=== PATIENT | female | born 1950 | race Caucasian/White ===

== ENCOUNTER 2016-03-27 10:34 | Emergency (ER) | payer OTHER ==
[2016-03-27 10:44] VITALS: BP 126/82
--- NOTE | 2016-03-27 11:10 | UC ---
Abdominal Pain Female HPI - HPI Summary HPI Summary: 3 DAYS OF LLQ PAIN AND WATERY DIARRHEA. NO BLOOD PER RECTUM. HAS A H/O DIVERTICULITIS AND THIS FEELS THE SAME. NO FEVER, N/V. - History of Current Complaint Chief Complaint: UCGI Stated Complaint: STOMACH COMPLAINT Time Seen by Provider: 03/27/16 10:58 Hx Obtained From: Patient Onset/Duration: Sudden Onset, Lasting Days, Still Present Timing: Constant Severity Initially: Moderate Severity Currently: Moderate Pain Intensity: 3 Pain Scale Used: 0-10 Numeric Location: Discrete At: LLQ Radiates: No Character: Cramping, Sharp Aggravating Factor(s): Movement Alleviating Factor(s): Nothing Associated Signs and Symptoms: Positive: Diarrhea. Negative: Fever Allergies/Adverse Reactions: Allergies Allergy/AdvReac Type Severity Reaction Status Date / Time Oxycodone [From Percocet] Allergy Mild Constipatio Verified 03/28/13 10:41 n Home Medications: Home Medications [place]-3 Fatty Acids [Fish Oil] 1,000 mg PO 03/27/16 [History] SUMAtriptan SQ* [Imitrex SQ*] 6 mg SUBCUT SEE INSTRUCTIONS 03/27/16 [History Confirmed 03/27/16] PMH/Surg Hx/FS Hx/Imm Hx Endocrine History Of: Denies: Diabetes Cardiovascular History Of: Denies: Hypertension, Congestive Heart Failure GI/ History Of: Denies: Renal Disease Neurological History Of: Reports: Migraine Cancer History Of: Denies: Breast Cancer - Surgical History Surgical History: Yes Surgery Procedure, Year, and Place: SHOULDER LEFT SURGERY, polyp removal during colonoscopy in the past - Family History Known Family History: Positive: Hypertension, Other - CVA - Social History Alcohol Use: Daily Substance Use Type: None Smoking Status (MU): Never Smoked Tobacco Review of Systems Constitutional: Negative Respiratory: Negative Cardiovascular: Negative Gastrointestinal: Abdominal Pain, Diarrhea All Other Systems Reviewed And Are Negative: Yes Physical Exam Triage Information Reviewed: Yes Appearance: Well-Appearing, Well-Nourished, Pain Distress - MODERATE Vital Signs: Initial Vital Signs Temp 96.5 F 03/27/16 10:39 Pulse 96 03/27/16 10:39 Resp 18 03/27/16 10:39 BP 126/82 03/27/16 10:39 Pulse Ox 98 03/27/16 10:39 Vital Signs Reviewed: Yes Eyes: Positive: Conjunctiva Clear ENT: Positive: Hearing grossly normal Neck: Positive: Supple Respiratory Exam: Normal Cardiovascular: Positive: Tachycardia Abdomen Description: Positive: Soft, Other: - TTP LLQ. NO REBOUND OR RIGIDITY. Negative: Distended, Guarding Bowel Sounds: Positive: Present Musculoskeletal: Positive: No Edema Neurological: Positive: Alert Psychological: Positive: Age Appropriate Behavior Skin: Negative: rashes Abd Pain Female Course/Dx - Differential Dx/Diagnosis Provider Diagnoses: DIVERTICULITIS Discharge - Discharge Plan Condition: Stable Disposition: HOME Prescriptions: Ciprofloxacin TAB* [Cipro Tab*] 500 mg PO BID #20 tab Metronidazole [Flagyl 500 MG TAB] 500 mg PO TID #30 tab Patient Education Materials: Diverticulitis (ED) Referrals: Oneal Reid MD [Primary Care Provider] - If Needed Additional Instructions: GO TO THE ER WITHOUT FAIL IF YOUR SYMPTOMS WORSEN OR DO NOT IMPROVE.
== END 2016-03-27 11:26 | disposition home or self-care (01) ==
LOC: UCEAST 10:34
DX: K57.92 Diverticulitis of intestine, part unspecified, without perforation or abscess without bleeding (principal); Z87.19 Personal history of other diseases of the digestive system; Z86.010 Personal history of colon polyps
CPT/HCPCS: 99212; G0463

== ENCOUNTER 2016-10-25 07:13 | Emergency (ER) | payer OTHER ==
[2016-10-25] MEDS ORDERED: Ondansetron INJ* 2 MG/ML VIAL IV ONE (07:36)
[2016-10-25] MEDS ORDERED: HYDROmorphone* 1 MG/ML 1 ML SYR IV ONE (07:36)
[2016-10-25] MEDS ORDERED: NS 0.9% 1000 ML* 1,000 ML IV ONE (07:36)
[2016-10-25 07:45] LABS: Hematocrit 40 % (35-47); Hemoglobin 13.5 g/dl (12.0-16.0); Mean Corpuscular HGB Conc 34 g/dl (31-36); Mean Corpuscular Hemoglobin 31 pg (27-31); Mean Corpuscular Volume 91 fL (80-97); Mean Platelet Volume 8 um3 (7.4-10.4); Red Blood Count 4.36 10^6/ul (4.0-5.4); Red Cell Distribution Width 13 % (10.5-15); White Blood Count 13.5 10^3/ul (3.5-10.8)
[2016-10-25 08:00] LABS: Albumin 4.6 g/dL (3.2-5.2); BUN/Creatinine Ratio 15.3 (8-20); C Reactive Protein 15.01 mg/L (< 5.00); Calcium 9.2 mg/dL (8.6-10.3); EGFR African American 104.9 (>60); EGFR Non-African American 81.6 (>60); Globulin 2.7 g/dL (2-4); Potassium 3.9 mmol/L (3.5-5.0); Total Bilirubin 0.8 mg/dL (0.2-1.0); Total Protein 7.3 g/dL (6.4-8.9)
--- NOTE | 2016-10-25 08:31 | RAD ---
CLINICAL HISTORY: Diarrhea and low abdominal pain COMPARISON: Most recent comparison CT is dated February 06, 2012 TECHNIQUE: Noncontrast CT examination of the abdomen and pelvis from the lung bases through the initial tuberosities. FINDINGS: VISUALIZED LUNG BASES: The visualized lung bases are grossly clear. There is no pleural effusion. ABDOMEN AND PELVIS: Evaluation of the solid organs and vasculature is limited without intravenous contrast. The liver, spleen, pancreas and adrenal glands are grossly normal in appearance. The gallbladder is normal. The kidneys are normal in appearance without focal mass, calcification or signs of hydronephrosis. Evaluation of the small and large bowel is limited in the absence of oral contrast. The small and large bowel are not distended.The patient's normal appendix is identified in the right lower quadrant measuring up to 5 mm in diameter with gas in the lumen (image 100). There are colonic diverticula that become more concentrated in the distal and rectosigmoid colon. The sigmoid colon exhibits wall thickening and moderate pericolonic infiltration of the mesenteric fat. There is no drainable fluid collection or abscess. There is no gross free air to indicate macro perforation. There is no gross retroperitoneal or mesenteric lymphadenopathy. The pelvic viscera is normal in appearance. The abdominal aorta and iliac arteries are normal in course and diameter. Degenerative changes include multilevel loss of intervertebral disc height involving the lower thoracic and lumbar spine.There are no sinister bone lesions. IMPRESSION: CT findings are most consistent with sigmoid colon diverticulitis.
[2016-10-25 09:08] LABS: Urine Bacteria Absent (Absent); Urine Bilirubin Negative (Negative); Urine Glucose Negative (Negative); Urine Nitrite Negative (Negative)
[2016-10-25 09:09] VITALS: BP 126/62
--- NOTE | 2016-10-25 09:23 | ED ---
Con Cummings Angela, scribed for Andrés Duckworth MD on 10/25/16 at 0736 . Abdominal Pain/Female - HPI Summary HPI Summary: This pt is a 65 y/o female presenting to [facility] c/o severe abdominal pain since last night at 20:30. Pt reports that she had 1 episode of diarrhea that is described as "massive" and "wore her out." She notes her pain is like waves of severe pain and described as "almost giving ." Pt states that she drank 3 glasses of warm water to alleviate her pain but urinating aggravated her abd pain. Pt denies nausea, vomiting, dysuria, hematuria, bloody stools, fever. PMHx : diverticulitis. - History of Current Complaint Chief Complaint: EDAbdPain Stated Complaint: ABD PAIN Hx Obtained From: Patient Onset/Duration: Sudden Onset - since last night, Still Present Pain Intensity: 10 Location: Diffuse Radiates: No Aggravating Factor(s): Movement, Other: - urinating Alleviating Factor(s): Nothing Associated Signs and Symptoms: Positive: Diarrhea. Negative: Fever, Blood in Stool, Urinary Symptoms, Vaginal Bleeding, Nausea, Vomiting Allergies/Adverse Reactions: Allergies Allergy/AdvReac Type Severity Reaction Status Date / Time Oxycodone [From Percocet] Allergy Mild Constipatio Verified 03/28/13 10:41 n PMH/Surg Hx/FS Hx/Imm Hx Endocrine/Hematology History: Denies: Hx Diabetes Cardiovascular History: Denies: Hx Congestive Heart Failure, Hx Hypertension GI History: Reports: Other GI Disorders - present fever and llq pain colonoscopy in dec 1011 History: Denies: Hx Renal Disease Neurological History: Reports: Hx Migraine - Cancer History Cancer Type, Location and Year: skin cancer to l cheek Hx Chemotherapy: No Hx Radiation Therapy: No - Surgical History Surgery Procedure, Year, and Place: SHOULDER LEFT SURGERY, polyp removal during colonoscopy in the past - Immunization History Date of Tetanus Vaccine: Unknown Date of Influenza Vaccine: None Infectious Disease History: Denies: Traveled Outside the [place] in Last 30 Days - Family History Known Family History: Positive: Hypertension, Other - CVA - Social History Alcohol Use: Daily Substance Use Type: Reports: None Smoking Status (MU): Never Smoked Tobacco Review of Systems Negative: Fever, Chills Positive: Abdominal Pain, Diarrhea. Negative: Vomiting, Nausea Negative: dysuria, hematuria All Other Systems Reviewed And Are Negative: Yes Physical Exam Triage Information Reviewed: Yes Vital Signs On Initial Exam: Initial Vitals Temp Pulse Resp BP Pulse Ox 100 F 103 24 144/60 98 10/25/16 07:15 10/25/16 07:15 10/25/16 07:15 10/25/16 07:15 10/25/16 07:15 Vital Signs Reviewed: Yes Appearance: Positive: Well-Appearing, Pain Distress Skin: Positive: Warm, Skin Color Reflects Adequate Perfusion, Dry Head/Face: Positive: Normal Head/Face Inspection Eyes: Positive: Normal ENT: Positive: Normal ENT inspection Neck: Positive: Supple, Nontender Respiratory/Lung Sounds: Positive: Clear to Auscultation, Breath Sounds Present Cardiovascular: Positive: RRR Abdomen Description: Positive: Soft, Other: - Mildly tender around periumbilical area Bowel Sounds: Positive: Present Musculoskeletal: Positive: Normal Neurological: Positive: Normal Psychiatric: Positive: Normal, Affect/Mood Appropriate Diagnostics - Vital Signs Vital Signs Temp Pulse Resp BP Pulse Ox 10/25/16 07:15 100 F 103 24 144/60 98 - Laboratory Lab Results: Lab Results 10/25/16 10/25/16 10/25/16 Range/Units 07:30 07:30 07:30 WBC 13.5 H (3.5-10.8) 10^3/ul RBC 4.36 (4.0-5.4) 10^6/ul Hgb 13.5 (12.0-16.0) g/dl Hct 40 (35-47) % MCV 91 (80-97) fL MCH 31 (27-31) pg MCHC 34 (31-36) g/dl RDW 13 (10.5-15) % Plt Count 200 (150-450) 10^3/ul MPV 8 (7.4-10.4) um3 Neut % (Auto) 88.4 H (38-83) % Lymph % (Auto) 6.2 L (25-47) % Johnson % (Auto) 5.2 (1-9) % Eos % (Auto) 0 (0-6) % Baso % (Auto) 0.2 (0-2) % Absolute Neuts (auto) 12.0 H (1.5-7.7) 10^3/ul Absolute Lymphs (auto) 0.8 L (1.0-4.8) 10^3/ul Absolute Monos (auto) 0.7 (0-0.8) 10^3/ul Absolute Eos (auto) 0 (0-0.6) 10^3/ul Absolute Basos (auto) 0 (0-0.2) 10^3/ul Absolute Nucleated RBC 0 10^3/ul Nucleated RBC % 0 Sodium 134 (133-145) mmol/L Potassium 3.9 (3.5-5.0) mmol/L Chloride 101 (101-111) mmol/L Carbon Dioxide 22 (22-32) mmol/L Anion Gap 11 (2-11) mmol/L BUN 11 (6-24) mg/dL Creatinine 0.72 (0.51-0.95) mg/dL Est GFR ( Amer) 104.9 (>60) Est GFR (Non-Af Amer) 81.6 (>60) BUN/Creatinine Ratio 15.3 (8-20) Glucose 124 H (70-100) mg/dL Lactic Acid 2.9 H* (0.5-2.0) mmol/L Calcium 9.2 (8.6-10.3) mg/dL Total Bilirubin 0.80 (0.2-1.0) mg/dL AST 22 (13-39) U/L ALT 17 (7-52) U/L Alkaline Phosphatase 69 (34-104) U/L C-Reactive Protein 15.01 H (< 5.00) mg/L Total Protein 7.3 (6.4-8.9) g/dL Albumin 4.6 (3.2-5.2) g/dL Globulin 2.7 (2-4) g/dL Albumin/Globulin Ratio 1.7 (1-3) Lipase 17 (11.0-82.0) U/L Urine Color Urine Appearance Urine pH (5-9) Ur Specific Colton (1.010-1.030) Urine Protein (Negative) Urine Ketones (Negative) Urine Blood (Negative) Urine Nitrate (Negative) Urine Bilirubin (Negative) Urine Urobilinogen (Negative) Ur Leukocyte Esterase (Negative) Urine WBC (Auto) (Absent) Urine RBC (Auto) (Absent) Urine Bacteria (Absent) Urine Glucose (Negative) 10/25/16 Range/Units 08:45 WBC (3.5-10.8) 10^3/ul RBC (4.0-5.4) 10^6/ul Hgb (12.0-16.0) g/dl Hct (35-47) % MCV (80-97) fL MCH (27-31) pg MCHC (31-36) g/dl RDW (10.5-15) % Plt Count (150-450) 10^3/ul MPV (7.4-10.4) um3 Neut % (Auto) (38-83) % Lymph % (Auto) (25-47) % Johnson % (Auto) (1-9) % Eos % (Auto) (0-6) % Baso % (Auto) (0-2) % Absolute Neuts (auto) (1.5-7.7) 10^3/ul Absolute Lymphs (auto) (1.0-4.8) 10^3/ul Absolute Monos (auto) (0-0.8) 10^3/ul Absolute Eos (auto) (0-0.6) 10^3/ul Absolute Basos (auto) (0-0.2) 10^3/ul Absolute Nucleated RBC 10^3/ul Nucleated RBC % Sodium (133-145) mmol/L Potassium (3.5-5.0) mmol/L Chloride (101-111) mmol/L Carbon Dioxide (22-32) mmol/L Anion Gap (2-11) mmol/L BUN (6-24) mg/dL Creatinine (0.51-0.95) mg/dL Est GFR ( Amer) (>60) Est GFR (Non-Af Amer) (>60) BUN/Creatinine Ratio (8-20) Glucose (70-100) mg/dL Lactic Acid (0.5-2.0) mmol/L Calcium (8.6-10.3) mg/dL Total Bilirubin (0.2-1.0) mg/dL AST (13-39) U/L ALT (7-52) U/L Alkaline Phosphatase (34-104) U/L C-Reactive Protein (< 5.00) mg/L Total Protein (6.4-8.9) g/dL Albumin (3.2-5.2) g/dL Globulin (2-4) g/dL Albumin/Globulin Ratio (1-3) Lipase (11.0-82.0) U/L Urine Color Straw Urine Appearance Clear Urine pH 8.0 (5-9) Ur Specific Colton 1.005 L (1.010-1.030) Urine Protein Negative (Negative) Urine Ketones Negative (Negative) Urine Blood 1+ H (Negative) Urine Nitrate Negative (Negative) Urine Bilirubin Negative (Negative) Urine Urobilinogen Negative (Negative) Ur Leukocyte Esterase Trace H (Negative) Urine WBC (Auto) Trace(0-5/hpf) (Absent) Urine RBC (Auto) 1+(3-5/hpf) H (Absent) Urine Bacteria Absent (Absent) Urine Glucose Negative (Negative) Result Diagrams: 10/25/16 07:30 10/25/16 07:30 Lab Statement: Any lab studies that have been ordered have been reviewed, and results considered in the medical decision making process. - CT Abdomen/Pelvis CT CT Interpretation: Positive (See Comments) - IMPRESSION: CT findings are most consistent with sigmoid colon diverticulitis. ED physician has reviewed this radiology report and agrees. CT Interpretation Completed By: Radiologist Abdominal Pain Fem Course/Dx - Course Course Of Treatment: Ms. Morales presented in quite a bit of pain. It was low midline abdominal pain that seemed peristaltic. CT revealed sigmoid diverticulitis and she will be treated with antibiotics. She refused opiate pain meds. - Diagnoses Provider Diagnoses: Diverticulitis Discharge - Discharge Plan Condition: Stable Disposition: HOME Prescriptions: Ciprofloxacin TAB* [Cipro Tab*] 500 mg PO BID #20 tab Metronidazole [Flagyl 500 MG TAB] 500 mg PO TID #30 tab Naproxen TAB* [Naprosyn 375 mg TAB*] 375 mg PO Q8H #30 tab Patient Education Materials: Diverticulitis (ED) Referrals: Oneal Reid MD [Primary Care Provider] - Additional Instructions: Your blood pressure was elevated during today's visit. Please follow up with your primary care physician. The documentation as recorded by the Con matta Angela accurately reflects the service I personally performed and the decisions made by me, Andrés Duckworth MD.
== END 2016-10-25 09:21 | disposition home or self-care (01) ==
LOC: ED 07:13
DX: K57.92 Diverticulitis of intestine, part unspecified, without perforation or abscess without bleeding (principal); R19.7 Diarrhea, unspecified; R10.9 Unspecified abdominal pain
CPT/HCPCS: 36415; 74176; 80053; 81003; 81015; 83605; 83690; 85025; 86140; 87086; 96374; 96375; 99282; J1170; J2405

== ENCOUNTER 2017-02-19 07:45 | Inpatient (IN) | payer OTHER ==
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
[~2017-02-19 07:45] MED LIST: Buffered Lidocaine 0.9% SYRIN* 5 ML/SYR SYRINGE INTRADERM ONE; Dexamethasone IV* 4 MG/ML 1 ML (4 MG) IV SLOW PU ONE; Famotidine IV* 10 MG/ML 2 ML (20 mg) IV ONE; Scopolamine 1.5 mg* PATCH TRANSDERM ONE
[2017-02-19] MEDS ORDERED: Scopolamine 1.5 mg* PATCH ONE (14:13)
[2017-02-19] MEDS ORDERED: Dexamethasone IV* 4 MG/ML 1 ML (4 MG) ONE (14:13)
[2017-02-19] MEDS ORDERED: Famotidine IV* 10 MG/ML 2 ML (20 mg) ONE ×2 (14:13→22:11)
[2017-02-19] MEDS ORDERED: Buffered Lidocaine 0.9% SYRIN* 5 ML/SYR SYRINGE ONE (14:14)
[2017-02-19] MEDS ORDERED: Ertapenem* 1 GM in NS 0.9% 50 ML* 50 ML IVPB ONE (14:30)
[2017-02-19] MEDS ORDERED: Bupivacaine 0.25% SDV* 30 ML ONE (16:41)
[2017-02-19] MEDS ORDERED: Propofol* 10 MG/ML 20 ML BTL IV PUSH ONE (17:00)
[2017-02-19] MEDS ORDERED: Lidocaine 2% PF * 5 ML VIAL ONE (17:00)
[2017-02-19] MEDS ORDERED: fentaNYL* 50 MCG/ML 5 ML VIAL (250 MCG VIAL) ONE (17:01)
[2017-02-19] MEDS ORDERED: Rocuronium* 10 MG/ML VIAL ONE (17:02)
[2017-02-19] MEDS ORDERED: Ketorolac INJ* 30 MG/ML 1 ML VIAL ONE (17:52)
[2017-02-19] MEDS ORDERED: PROCHLORPERAZINE INJ 5 MG/ML 2 ML VIAL IV PRN (18:05)
[2017-02-19] MEDS ORDERED: Acetaminophen IV 1GM/100ML * 1,000 MG/100 ML VIAL IVPB ONE (18:05)
[2017-02-19] MEDS ORDERED: fentaNYL* 50 MCG/ML 2 ML VIAL (100 MCG VIAL) ONE ×4 (18:39→21:25)
[2017-02-19] MEDS ORDERED: Ondansetron INJ* 2 MG/ML VIAL ONE (19:25)
[2017-02-19] MEDS ORDERED: Phenylephrine IV* 40 MCG/ML 10 ML SYRINGE ONE (19:47)
[2017-02-19] MEDS ORDERED: EPHEDrine (Pressors)* 50 MG/ML VIAL ONE (19:52)
[2017-02-19] MEDS ORDERED: Ondansetron INJ* 2 MG/ML VIAL IV PRN (20:48)
[2017-02-19] MEDS ORDERED: Acetaminophen IV 1GM/100ML * 100 ML ONE (21:06)
[2017-02-19] MEDS ORDERED: Morphine INJ* 10 MG/ML 1 ML CARPUJECT ONE (21:10)
[2017-02-19] MEDS: Morphine INJ* 2 MG/ML 1 ML CARPUJECT IV PRN ×2 (21:11→21:52)
[2017-02-19] MEDS: fentaNYL* 50 MCG/ML 2 ML VIAL (100 MCG VIAL) IV PRN ×2 (21:27→21:35)
[2017-02-19] MEDS: Famotidine IV* 10 MG/ML 2 ML (20 mg) IV SLOW PU SCH (22:14)
[2017-02-20 05:27] LABS: Hematocrit 36 % (35-47); Hemoglobin 12.1 g/dl (12.0-16.0); Mean Corpuscular HGB Conc 34 g/dl (31-36); Mean Corpuscular Hemoglobin 32 pg (27-31); Mean Corpuscular Volume 93 fL (80-97); Mean Platelet Volume 7 um3 (7.4-10.4); Red Blood Count 3.83 10^6/ul (4.0-5.4); Red Cell Distribution Width 13 % (10.5-15); White Blood Count 10.2 10^3/ul (3.5-10.8)
[2017-02-20 05:41] LABS: BUN/Creatinine Ratio 13.4 (8-20); Calcium 8.4 mg/dL (8.6-10.3); EGFR African American 113.6 (>60); EGFR Non-African American 88.3 (>60); Potassium 3.9 mmol/L (3.5-5.0)
[2017-02-20] MEDS: Heparin VIAL(*) 5000 UNITS/ML VIAL (FIVE THOUSAND) SUBCUT SCH ×2 (06:03→15:14)
--- NOTE | 2017-02-20 07:38 | OP ---
CC: Oneal Reid MD; [facility] DATE OF OPERATION: 02/19/17 - ROOM #333 DATE OF : 52 SURGEON: Gallo Walls MD. BINDERY LEADPERSON: Dr. Rutherford and EDI Arreguin. ANESTHESIOLOGIST: Delores Green MD. ANESTHESIA: General endotracheal. PRE-OP DIAGNOSIS: Recurrent sigmoid diverticulitis. POST-OP DIAGNOSIS: Recurrent sigmoid diverticulitis. OPERATIVE PROCEDURE: Laparoscopic sigmoid colectomy. ESTIMATED BLOOD LOSS: 50 mL. IV FLUIDS: 2.3 L crystalloids. SPECIMENS: Sigmoid colon. DRAINS: None. COMPLICATIONS: None. COUNTS: Instrument, needle, and sponge counts were correct. DESCRIPTION OF PROCEDURE: The patient was brought to the operating room and placed on the table supine. Sequential compression devices were placed in both lower extremities. General anesthesia was administered. Yusuf catheter was placed. She was positioned split leg on the table and secured and padded appropriately. She had rectal irrigation performed until clear with Betadine solution. She received intravenous antibiotics and she was prepped and draped in the usual sterile fashion and a time-out was performed. Local anesthetic was infiltrated prelimbically and an infraumbilical vertical incision was created and using an open technique the perineal cavity was accessed and the 5 mm trocar was placed and carbon dioxide was insufflated to a pressure of 15 mmHg. Under direct visualization additional 5 mm trocars were placed in the left lower quadrant, right lower quadrant, and suprapubic midline. The patient's abdominal cavity was notable for no evidence of adhesions to the anterior abdominal wall. There was chronic-appearing diverticular disease of the sigmoid colon with adhesions to the left adnexa and around the pelvis. To elevate the uterus out of the way a 3-0 Monocryl suture on a Torito needle was passed transabdominally in the suprapubic region and looped through the broad ligament on either side and then drawn back to the abdominal wall to elevate the uterus off of the rectum. The dissection was performed using combination of LigaSure with monopolar cautery and blunt dissection to mobilize the descending colon along the white line of Toldt and this was taken up to but not including the splenic flexure and then down to the sigmoid colon where there were some dense adhesion along the pelvic brim on the left side. The mobilization of the descending colon enabled visualization of the ureter on the left side which was positively identified and maintained out of the planes of dissection. The dissection proceeded distally, bluntly the sigmoid colon to the midline and then on the right side of the rectosigmoid junction the peritoneum was scored on the mesentery and then a blunt dissection was performed behind the top of the rectum creating a window in the mesentery. This was enlarged using LigaSure staying close to the wall. Then a 12-mm trocar was used to replace the 5 mm initial trocar at the umbilical site and a EndoGIA stapler with a purple 60 mm cartridge was used to divide the top of the rectum in a posterior anterior direction and after completing the division of the bowel, the bowel was elevated and a window created in the distal descending colon proximally and the mesentery was divided close to the bowel with a LigaSure extending from the distal margin resection proximally as well as from the proximal window down until the mesentery was completely divided. Hemostasis was assured. Then the umbilical wound was enlarged and a small size Billy retractor was placed in the site and the sigmoid colon drawn through this. There were noted to be numerous diverticula. Outside of the sigmoid colon and descending colon a soft normal-appearing portion of bowel was isolated as the proximal margin and then this was divided and the remaining mesentery was divided with LigaSure and the specimen was handed off. The bowel was sized proximally for a 28 mm EEA stapler and a small additional portion of proximal colon was resected in order to eliminate in the area of dense diverticular disease and then a 28 mm anvil was placed into the bowel lumen and the pursestring suture with a 2-0 Prolene was used in a whipstitch fashion to secure the anvil. There were two small tics that were separately drawn into the anvil with 3-0 silk, and inspection revealed that there were no tics within the area of the staple line. The bowel was then returned to the peritoneal cavity and instrument and glove change was performed and the Billy retractor was removed and the midline wound was closed with interrupted [id number] 0 Vicryl and #1 Vicryl sutures and a 5-mm trocar was placed through this wound and the peritoneal cavity was re-insufflated. The continuity of the bowel was restored by an end-to-end colorectal anastomosis with a 28-mm EEA stapler using a double staple technique. The anastomosis was then tested with bubble leak test with proximal occlusion on the colon. There was no evidence of leak. The air was evacuated from the rectum and hemostasis was assured. The ports were removed under direct visualization and carbon-dioxide was released. Incisions were irrigated and closed with aris. The wounds were dressed. The patient was extubated uneventfully and transferred to the recovery room in a stable condition. [id number]/[facility] #: [id number] BLU
[2017-02-20] MEDS: Ketorolac INJ* 30 MG/ML 1 ML VIAL IV PRN (08:06)
[2017-02-20] MEDS ORDERED: Influenza VAC *QUAD* 2017-18* 0.5 ML SYRINGE IM ONE (09:00)
[2017-02-20] MEDS: Famotidine IV* 10 MG/ML 2 ML (20 mg) IV SLOW PU SCH ×2 (10:24→21:05)
--- NOTE | 2017-02-20 14:42 | PN ---
Progress Note - Progress Note Date of Service: 02/20/17 SOAP: Subjective: She has had a couple of episodes of BRBRP with clots, but that seems to have stopped and she has passed some flatus. Pain is controlled without narcotics. No N/V. Objective: Vital Signs Temp 97.8 F 02/20/17 11:47 Pulse 73 02/20/17 11:47 Resp 16 02/20/17 11:47 BP 111/47 02/20/17 11:47 Pulse Ox 100 02/20/17 11:47 Gen: Well appearing; sitting up in be reading; NAD. Abd: dressings c/d/i; surrounding ecchymosis; soft; ND; min tender Intake & Output 02/19/17 02/20/17 02/20/17 18:59 06:59 18:59 Intake Total 50 985 0 Output Total 400 60 Balance 50 585 -60 Weight 137 lb Intake: IV Fluids 50 985 ERTAPENEM 1GM 50 LR 985 Oral 0 0 Output: Urine 0 Yusuf 400 60 Other: Estimated Void Small # Voids 1 Laboratory Results - last 24 hr 02/20/17 02/20/17 04:58 04:58 WBC 10.2 RBC 3.83 L Hgb 12.1 Hct 36 MCV 93 MCH 32 H MCHC 34 RDW 13 Plt Count 204 MPV 7 L Neut % (Auto) 82.7 Lymph % (Auto) 9.4 L Nicholas % (Auto) 7.7 Eos % (Auto) 0 Baso % (Auto) 0.2 Absolute Neuts (auto) 8.4 H Absolute Lymphs (auto) 1.0 Absolute Monos (auto) 0.8 Absolute Eos (auto) 0 Absolute Basos (auto) 0 Absolute Nucleated RBC 0 Nucleated RBC % 0 Sodium 140 Potassium 3.9 Chloride 110 Carbon Dioxide 25 Anion Gap 5 BUN 9 Creatinine 0.67 Est GFR ( Amer) 113.6 Est GFR (Non-Af Amer) 88.3 BUN/Creatinine Ratio 13.4 Glucose 105 H Calcium 8.4 L Assessment: POD#1 s/p LAP SIGMOID Doing well but possible LGIB vs. passing retained blood from surgery. Plan: Will advance diet. Follow up labs tomorrow, sooner prn. PO meds. Possible d/ c late tomorrow or Saturday.
[2017-02-20] MEDS ORDERED: SUMAtriptan SQ* 6 MG/0.5 ML VIAL SUBCUT PRN (14:44)
[2017-02-20] MEDS ORDERED: oxyCODONE TAB* 5 MG TAB PO PRN (14:45)
[2017-02-20] MEDS ORDERED: NS 0.9% 500 ML* 500 ML IV ONE (16:20)
[2017-02-20] MEDS: HYDROmorphone INJ* 2 MG/ML CARPUJECT SYRINGE IV PRN ×2 (21:05→23:39)
[2017-02-21] MEDS: HYDROmorphone INJ* 2 MG/ML CARPUJECT SYRINGE IV PRN (02:34)
[2017-02-21 05:42] LABS: Hematocrit 30 % (35-47); Hemoglobin 10.5 g/dl (12.0-16.0)
[2017-02-21] MEDS: Ketorolac INJ* 30 MG/ML 1 ML VIAL IV PRN (07:26)
[2017-02-21] MEDS ORDERED: Lactobacillus Acidophilu (GG)* 1 CAP CAP PO SCH (09:00)
[2017-02-21] MEDS: Famotidine IV* 10 MG/ML 2 ML (20 mg) IV SLOW PU SCH (09:18)
[2017-02-21] MEDS ORDERED: Acetaminophen TAB* 325 MG PO PRN (10:44)
--- NOTE | 2017-02-21 10:52 | PN ---
Progress Note - Progress Note Date of Service: 02/21/17 Note: Surgery Progress: S: POD #2. No c/o. Nic clears; would like to advance. Passing flatus. Has still passed a few clots pr, but less than previous. Ambulating and voiding well. Responded to fluid bolus yesterday. O: tmax 101 yesterday pm Vital Signs - 8 hr 02/21/17 02/21/17 02/21/17 03:27 05:25 05:26 Temperature 98.6 F Pulse Rate 81 Respiratory 16 17 17 Rate Blood Pressure 148/69 (mmHg) O2 Sat by Pulse 94 Oximetry 02/21/17 02/21/17 08:00 08:13 Temperature 97.9 F Pulse Rate 80 Respiratory 16 16 Rate Blood Pressure 134/70 (mmHg) O2 Sat by Pulse 96 Oximetry Intake and Output Last 24 Hours 02/19/17 02/20/17 02/21/17 02/22/17 06:59 06:59 06:59 06:59 Intake Total 1035 3022 1498 Output Total 400 2415 900 Balance 635 607 598 Weight 137 lb Intake: IV Fluids 1035 1817 1148 ERTAPENEM 1GM 50 LR 985 1817 1148 Oral 0 1205 350 Output: Urine 2300 900 Yusuf 400 60 Estimated Blood Loss 55 Other: Estimated Void Small # Bowel Movements 1 Estimated Stool Amount Small # Voids 1 Gen: NAD Heart: reg Lungs; clear Abd: +BS; evolving ecchymosis around incisions, nahum midline, where there is a small amt of sang drainage. Incisional tenderness as expected. No definite hematoma at midline incision. Laboratory Results - last 24 hr 02/21/17 05:15 Hgb 10.5 L Hct 30 L A: s/p lap sigmoid colectomy, doing well overall P: will adv diet; decrease IVF; Dr. Walls to see later, check wound; prob d/c home 02/22?
[2017-02-21 12:12] VITALS: BP 137/74
[2017-02-21] MEDS ORDERED: Ibuprofen TAB* 400 MG PO PRN (20:51)
--- NOTE | 2017-02-22 04:06 | DS ---
CC: Oneal Reid MD* DISCHARGE SUMMARY: DATE OF ADMISSION: 02/19/17 DATE OF DISCHARGE: 02/21/17 ATTENDING SURGEON: Dr. Gallo Walls* (dictated by EDI Carrasquillo). HOSPITAL COURSE: Please refer to admission history and physical for admission details and also separate operative note. The patient was taken to the operating room on 02/19/17 and underwent laparoscopic-assisted sigmoid colectomy with Dr. Walls. Pathology at this time is still pending. Surgery was otherwise uneventful. Yusuf catheter was removed on postop day #1 and the patient has been gradually able to progress in diet to currently tolerating full liquid diet. She did have some passage of clot in the first 24 hours postoperatively and therefore heparin was held. A repeat of her H and H today was 10.5 and 30 down from 12.1 and 36. PHYSICAL EXAMINATION: Vital Signs: T-max in the last 24 hours 101 last evening. She is afebrile at 97.6 this morning, blood pressure 137/74, pulse 76, respirations 18, room air saturation 98%. General: She appears well and in no acute distress. Skin: Warm and dry. Heart: Regular rate and rhythm. Lungs: Clear to auscultation. Abdomen: Bowel sounds present. Laparoscopic incision sites are clean and dry without evidence of infection. There is a small amount of serosanguineous drainage on the dressing at the umbilicus and some surrounding ecchymosis, but no significant palpable hematoma. The area is appropriately tender. The remainder of the abdomen is relatively soft and nontender. IMPRESSION: Status post laparoscopic-assisted sigmoid colectomy, doing well. The patient was also seen earlier by Dr. Walls. PLAN: Home today. Instructions were reviewed regarding wound care, activity and diet. She has a followup with myself in our office on 02/26/17. EDI CARRASQUILLO [id number]/[facility] #: [id number] MTDD
[2017-02-22] MEDS ORDERED: Scopolamine PATCH Remove* 1 NOTE MISC PATCH OFF ONE (06:00)
== END 2017-02-21 16:05 | disposition home or self-care (01) | DRG 331 ==
LOC: AA 14:12 → SSU 22:40
PROVIDERS: ADMIT Surgery; ATTEND Surgery
PROC: 0DBN4ZZ Excision of Sigmoid Colon, Percutaneous Endoscopic Approach (ICD-10-PCS; principal; 2017-02-19 14:30)
DX: K57.32 Diverticulitis of large intestine without perforation or abscess without bleeding (principal); G43.909 Migraine, unspecified, not intractable, without status migrainosus; M19.90 Unspecified osteoarthritis, unspecified site; Z85.828 Personal history of other malignant neoplasm of skin; Z98.51 Tubal ligation status; Z90.721 Acquired absence of ovaries, unilateral; Z82.49 Family history of ischemic heart disease and other diseases of the circulatory system; Z80.1 Family history of malignant neoplasm of trachea, bronchus and lung; Z80.43 Family history of malignant neoplasm of testis; Z28.21 Immunization not carried out because of patient refusal
CPT/HCPCS: 36415; 80048; 85014; 85018; 85025; 88307; A9270-GY; C1776; J1100; J1170; J1335; J1644; J1885; J2270; J2405; J2704; J3010; J3030

== ENCOUNTER 2018-02-19 06:48 | Day surgery (SDC) | payer OTHER ==
[~2018-02-19 06:48] MED LIST changes: +Acetaminophen TAB* 325 MG PO PRN; -Dexamethasone IV* 4 MG/ML 1 ML (4 MG) IV SLOW PU ONE; -Famotidine IV* 10 MG/ML 2 ML (20 mg) IV ONE; -Scopolamine 1.5 mg* PATCH TRANSDERM ONE
[2018-02-19] MEDS ORDERED: fentaNYL* 50 MCG/ML 2 ML VIAL (100 MCG VIAL) ONE (08:18)
[2018-02-19] MEDS ORDERED: Midazolam* 1 MG/ML 2 ML VIAL (2 MG) ONE (08:18)
[2018-02-19 08:39] VITALS: BP 105/86
[2018-02-19] MEDS ORDERED: Povidone Iodine 5% OPTH* 30 ML BTL ONE (11:13)
[2018-02-19] MEDS ORDERED: Cyclopentolate 1% OPTH.SOL* 2 ML BTL ONE (11:13)
[2018-02-19] MEDS ORDERED: Proparacaine 0.5% OPHTH.SOL* 15 ML BTL ONE (11:13)
[2018-02-19] MEDS ORDERED: Lidocaine 2% EPI 1:200000 MPF*10-20 ML VIAL ONE (11:13)
[2018-02-19] MEDS ORDERED: Neomycin/Polymy/Dex OPTH.SUSP* MAXITROL 0.1% 5 ML ONE (11:13)
[2018-02-19] MEDS ORDERED: acetaZOLAMIDE TAB* 250 MG ONE (11:13)
[2018-02-19] MEDS ORDERED: Ketorolac 0.5% OPHTH (NF) 0.5 % 5 ML BTL ONE (11:13)
[2018-02-19] MEDS ORDERED: Phenylephrine 2.5% OPTH.SOL* 2 ML BTL ONE (11:13)
[2018-02-19] MEDS ORDERED: Lidocaine 1%* 5 ML VIAL ONE (11:13)
--- NOTE | 2018-02-19 12:30 | OP ---
DATE OF OPERATION: 02/19/18 [facility] DATE OF : 52 SURGEON: Oneal Brennan M.D. PREOPERATIVE DIAGNOSIS: Cataract right eye. POSTOPERATIVE DIAGNOSIS: Cataract right eye. OPERATIVE PROCEDURE: Extracapsular cataract extraction with intraocular lens implant right eye. DESCRIPTION OF PROCEDURE: The patient was brought to the operating room after being given 1/2% Alcaine with epinephrine drops in the preoperative area. The eye was prepped and draped in the usual sterile fashion. Sterile drape and eyelid speculum were placed. Again, topical 1/2% Alcaine with epinephrine was given. A paracentesis incision was made at the 9 o'clock position with the No.75 blade. Clear cornea incision 2.2 x 2.2-mm was created at the 12 o'clock position starting at the anterior limbus using the 2.2-mm keratome. The anterior chamber was irrigated with 0.4 mL of 1% non-preservative intracameral lidocaine and filled with DisCoVisc. A capsulorrhexis was completed using the cystotome and the Utrata forceps. Hydrodissection was performed with balanced salt solution. The lens nucleus was removed with the Phacoemulsification handpiece without incident. Cortex was removed with the irrigation-aspiration handpiece. The capsular bag was re-inflated using DisCoVisc and an [id number] 24.5 implant was inserted with the shooter, oriented to the 90-degree meridian. Horizontal reference gonzalez were made with the patient in the seated in the preoperative area. The irrigation-aspiration handpiece was used to remove all residual DisCoVisc. The eye was refilled with balanced salt solution and the wound checked and found to be watertight. Topical Maxitrol drops were given. [id number]/[facility] #: [id number] [facility]
== END 2018-02-19 08:45 | disposition home or self-care (01) ==
LOC: OREAST 06:48
PROVIDERS: ATTEND Specialist
DX: H25.811 Combined forms of age-related cataract, right eye (principal); H35.372 Puckering of macula, left eye; G43.009 Migraine without aura, not intractable, without status migrainosus; G89.29 Other chronic pain
CPT/HCPCS: A9270-GY; J2250; J3010; V2787

== ENCOUNTER 2018-03-05 08:16 | Day surgery (SDC) | payer OTHER ==
[2018-03-05] MEDS ORDERED: Midazolam* 1 MG/ML 5 ML VIAL (5 MG) ONE (10:31)
[2018-03-05 11:38] VITALS: BP 143/75
[2018-03-05] MEDS ORDERED: Buffered Lidocaine 0.9% SYRIN* 5 ML/SYR SYRINGE INTRADERM ONE (11:53)
--- NOTE | 2018-03-05 12:01 | OP ---
DATE OF OPERATION: 03/05/2018. DATE OF : 1950. SURGEON: Oneal Brennan M.D. PREOPERATIVE DIAGNOSIS: Cataract left eye. POSTOPERATIVE DIAGNOSIS: Cataract left eye. OPERATIVE PROCEDURE: Extracapsular cataract extraction with intraocular lens implant left eye. PROCEDURE: The patient was brought to the operating room after being given 1/2% Alcaine with epineph rine drops in the preoperative area. The eye was prepped and draped in the usual sterile fashion. S terile drape and eyelid speculum were placed. Again, topical 1/2% Alcaine with epinephrine was given . A paracentesis incision was made at the 3 o'clock position with the No.75 blade. Clear cornea inc ision 2.2 x 2.2-mm was created at the 6 o'clock position starting at the anterior limbus using the 2. 2-mm keratome. The anterior chamber was irrigated with 0.4 mL of 1% non-preservative intracameral li docaine and filled with DisCoVisc. A capsulorrhexis was completed using the cystotome and the Utrata forceps. Hydrodissection was performed with balanced salt solution. The lens nucleus was removed wi th the Phacoemulsification handpiece without incident. Cortex was removed with the irrigation-aspira tion handpiece. The capsular bag was re-inflated using DisCoVisc and an [id number] 24.5 implant was inse rted with the shooter. The irrigation-aspiration handpiece was used to remove all residual DisCoVisc . The eye was refilled with balanced salt solution and the wound checked and found to be watertight. Topical Maxitrol drops were given. [id number]/[facility] #: [id number]
[2018-03-05] MEDS ORDERED: Povidone Iodine 5% OPTH* 30 ML BTL ONE (12:51)
[2018-03-05] MEDS ORDERED: acetaZOLAMIDE TAB* 250 MG ONE (12:51)
[2018-03-05] MEDS ORDERED: Ketorolac 0.5% OPHTH (NF) 0.5 % 5 ML BTL ONE (12:51)
[2018-03-05] MEDS ORDERED: Lidocaine 1%* 5 ML VIAL ONE (12:51)
[2018-03-05] MEDS ORDERED: Proparacaine 0.5% OPHTH.SOL* 15 ML BTL ONE (12:51)
[2018-03-05] MEDS ORDERED: Neomycin/Polymy/Dex OPTH.SUSP* MAXITROL 0.1% 5 ML ONE (12:51)
[2018-03-05] MEDS ORDERED: Cyclopentolate 1% OPTH.SOL* 2 ML BTL ONE (12:51)
[2018-03-05] MEDS ORDERED: Lidocaine 2% EPI 1:200000 MPF*10-20 ML VIAL ONE (12:51)
== END 2018-03-05 11:43 | disposition home or self-care (01) ==
LOC: OREAST 08:16
PROVIDERS: ATTEND Specialist
DX: H25.812 Combined forms of age-related cataract, left eye (principal); H35.372 Puckering of macula, left eye
CPT/HCPCS: A9270-GY; J2250; V2632